=== PATIENT | female | born 1945 | race Caucasian/White ===

== ENCOUNTER 2016-12-22 09:30 | Emergency (ER) | payer OTHER ==
[2016-12-22 09:38] VITALS: O2SAT 96
--- NOTE | 2016-12-22 10:04 | EDPHY ---
H & P Stated Complaint: fatigue, nuasea upon waking up. intermittant epigastric pain. Source: Patient, Family Exam Limitations: No limitations - Personal History Current Tetanus/Diphtheria Vaccine: Yes Current Tetanus Diphtheria and Acellular Pertussis (TDAP): Yes - Medical/Surgical History Hx Asthma: No Hx Chronic Respiratory Disease: No Hx Diabetes: No Hx Cardiac Disease: No Hx Renal Disease: No Hx Cirrhosis: No Hx Alcoholism: No Hx HIV/AIDS: No Hx Splenectomy or Spleen Trauma: No Other PMH: pmh;hashimotios. psh: 2 c-setions - Social History Smoking Status: Never smoked HPI/ROS: CHIEF COMPLAINT: Epigastric discomfort, right arm stiffness, nausea HISTORY OF PRESENT ILLNESS: Patient complains of sudden onset of epigastric discomfort, nausea and right arm stiffness this morning. Symptoms started abruptly at 7:30 a.m. and lasted approximately 20 minutes. She took 281 mg aspirin. She took no other new medications. Symptoms were [id number] at the time. No fever chills. No shortness of breath. No recent travel or surgery. No history of venous thrombolic event. No history of coronary artery disease. She denies any unilateral motor sensory changes today. Does have a history of Ammon's thyroiditis and takes [place] Thyroid and cytomel. She also has chronic peripheral edema that is reportedly baseline. She has no vomiting. No recent illness. No abdominal discomfort. No urinary complaints. No other associated complaints or modifying factors. REVIEW OF SYSTEMS: Ten systems reviewed and are negative unless otherwise noted in the HPI PAST MEDICAL HISTORY: Ammon's thyroiditis, chronic edema. Takes are more thyroid 135 mcg daily, Cytomel 5 mg daily, Lasix 20 mg p.r.n., Ritalin 10 mg p.r.n. Last cardiac stress test was nearly 15 years ago when she was a patient of Dr. Barakat SOCIAL HISTORY: Nonsmoker. Did smoke for 12 pack year history stopping 30 years ago. Lives in [place], [place] FAMILY HISTORY: Noncontributory EXAMINATION General Appearance: Alert, no distress Head: normocephalic, atraumatic Eyes: Pupils equal and round, no conjunctival pallor or injection ENT, Mouth: Mucous membranes moist. Uvula midline. Neck: Normal inspection, supple, non-tender. No meningismus or rigidity. Respiratory: Lungs are clear with mild rhonchi at the bases. No crackles. No diminishment. No retractions. No consolidation. Cardiovascular: Regular rate and rhythm. No murmur. Pulses intact distally symmetrically Gastrointestinal: Abdomen is soft and nontender Back: non-tender, no bony abnormalities Neurological: GCS 15. Cranial nerves 2-12 grossly intact. A&O, nonfocal, normal gait. Strength is symmetric in all 4 limbs. No pronator drift. No dysmetria Skin: Warm and dry, no rash. No petechiae or purpura. No ecchymosis. Extremities: Nontender, no pedal edema Psychiatric: Mood and affect normal DIFFERENTIAL DIAGNOSES: Including but not limited to ACS, CAD, CHF, hypervolemia, gastritis, pancreatitis, cholecystitis MDM: 9:55 a.m. Epigastric discomfort with right arm tightness and nausea at 7:30 a.m. this morning the lasted 20 minutes. Completely asymptomatic at this time. Vital signs are within normal limits. Examination is unremarkable for any acute findings other than edema which she reports is chronic. Cardiac workup as been commenced. She is resting comfortably in no acute distress. 10:30 a.m. EKG is unremarkable for any signs of acute ischemia. Vital signs remained stable. CBC is unremarkable. Troponin is pending. Chest x-ray as read by me reveals no significant pleural effusion or pulmonary edema. 11:30 a.m. I have re-evaluated the patient. She is resting comfortably in no acute distress. No complaints of any pain at this time. Laboratory studies are negative including troponin. TSH is low. We discussed that her armor thyroid dose may be too high and that she should discuss with her physician. I discussed the case with Dr. Rojas. He recommends that we contact [facility] to set up the patient with outpatient stress test this week. The patient is amenable to this. 12:00 p.m. I discussed the case with [facility] (Myra). She will help arrange an outpatient stress test. She will have the office contact the patient. The patient is also contact their office should she not hear from them. The patient is comfortable this plan. She remains awake and alert in no acute distress. Vital signs remained stable. She has no chest pain or epigastric pain. She is comfortable with this plan and discharged home stable condition. She is to return to the emergency department immediately for any chest pain, return of the epigastric pain or any other symptoms. Additionally, she should contact her primary care physician to discuss the TSH level for medication reconciliation. EKG Interpretation: Dr. Rojas SUPERVISION: Patient was evaluated in conjunction with the supervising physician. Please see their note for details. (Sheldon Molina) Constitutional: Initial Vital Signs Temperature (C) 36.4 C 12/22/16 09:35 Heart Rate 78 12/22/16 09:35 Respiratory Rate 16 12/22/16 09:35 Blood Pressure 177/99 H 12/22/16 09:35 O2 Sat (%) 96 12/22/16 09:35 O2 Delivery Mode Room Air Allergies/Adverse Reactions: Penicillins Allergy (Verified 12/22/16 09:39) Home Medications: Medication Instructions Recorded Lasix 12/22/16 Medical Decision Making - Diagnostics EKG Interpretation: 12-lead EKG interpreted by me; official reading is in trace master. My interpretation is sinus rhythm rate 77 no ischemic changes. (Keon Rojas) Imaging Results: Imaging Impressions Chest X-Ray 12/22/16 09:54 Impression: No acute pulmonary disease. Other Provider: Case discussed with Jesse, not personally evaluated by me. Low suspicion history for ACS, normal lipase and troponin, EKG without acute changes. HEART score low risk. Plan for outpatient stress testing as charted. Symptoms resolved makes dissection, abdominal surgical process, stroke or other neurologic or neurosurgical emergency, less likely. I am the secondary supervising physician. (Keon Rojas) - Data Points Laboratory Results: Laboratory Results 12/22/16 10:15 12/22/16 10:15 12/22/16 12/22/16 12/22/16 10:15 10:15 10:15 WBC 5.58 10^3/uL 10^3/uL (3.80-9.50) RBC 4.99 10^6/uL 10^6/uL (4.18-5.33) Hgb 14.0 g/dL g/dL (12.6-16.3) Hct 42.0 % % (38.0-47.0) MCV 84.2 fL fL (81.5-99.8) MCH 28.1 pg pg (27.9-34.1) MCHC 33.3 g/dL g/dL (32.4-36.7) RDW 14.7 % % (11.5-15.2) Plt Count 222 10^3/uL 10^3/uL (150-400) MPV 12.2 fL H fL (8.7-11.7) Neut % (Auto) 57.7 % % (39.3-74.2) Lymph % (Auto) 29.0 % % (15.0-45.0) Tyrrell % (Auto) 9.9 % % (4.5-13.0) Eos % (Auto) 2.0 % % (0.6-7.6) Baso % (Auto) 0.9 % % (0.3-1.7) Nucleat RBC Rel Count 0.0 % % (0.0-0.2) Absolute Neuts (auto) 3.22 10^3/uL 10^3/uL (1.70-6.50) Absolute Lymphs (auto) 1.62 10^3/uL 10^3/uL (1.00-3.00) Absolute Monos (auto) 0.55 10^3/uL 10^3/uL (0.30-0.80) Absolute Eos (auto) 0.11 10^3/uL 10^3/uL (0.03-0.40) Absolute Basos (auto) 0.05 10^3/uL 10^3/uL (0.02-0.10) Absolute Nucleated RBC 0.00 10^3/uL 10^3/uL (0-0.01) Immature Gran % 0.5 % % (0.0-1.1) Immature Gran # 0.03 10^3/uL 10^3/uL (0.00-0.10) PT 12.3 SEC SEC (12.0-15.0) INR 0.92 (0.83-1.16) APTT 24.2 SEC SEC (23.0-38.0) Sodium 144 mEq/L mEq/L (134-144) Potassium 3.9 mEq/L mEq/L (3.5-5.2) Chloride 108 mEq/L mEq/L (97-110) Carbon Dioxide 25 mEq/l mEq/l (22-31) Anion Gap 11 mEq/L mEq/L (8-16) BUN 17 mg/dL mg/dL (7-23) Creatinine 0.7 mg/dL mg/dL (0.6-1.0) Estimated GFR > 60 Glucose 91 mg/dL mg/dL (70-100) Calcium 9.8 mg/dL mg/dL (8.5-10.4) Total Bilirubin 0.5 mg/dL mg/dL (0.1-1.4) Conjugated Bilirubin 0.3 mg/dL mg/dL (0.0-0.5) Unconjugated Bilirubin 0.2 mg/dL mg/dL (0.0-1.1) AST 23 IU/L IU/L (14-46) ALT 32 IU/L IU/L (9-52) Alkaline Phosphatase 86 IU/L IU/L (38-126) Troponin I < 0.012 ng/mL ng/mL (0-0.034) NT-Pro-B Natriuret Pep 138 pg/mL H pg/mL (0-125) Total Protein 7.8 g/dL g/dL (6.3-8.2) Albumin 4.6 g/dL g/dL (3.5-5.0) Lipase 88.0 IU/L IU/L (23-300) TSH < 0.015 uIU/mL L uIU/mL (0.465-4.680) Departure - Departure Disposition: Home, Routine, Self-Care Clinical Impression: Epigastric pain, Ammon's thyroiditis Condition: Good Instructions: Epigastric Pain (ED) Additional Instructions: 1. Veronica Wolfe will contact you today to schedule a stress test this week 2. Contact her primary care physician to discuss her TSH in armor thyroid dosing 3. Return to ER for any return of symptoms, any chest pain, shortness of breath Referrals: NONE *PRIMARY CARE P,. [Primary Care Provider] - As per Instructions [facility] [Provider Group] - As per Instructions Segun Vaz MD [Medical Doctor] - As per Instructions
--- NOTE | 2016-12-22 10:06 | CPEKG ---
Heart Rate: 77 RR Interval: 779 P-R Interval: 135 QRSD Interval: 90 QT Interval: 380 QTC Interval: 431 P [place]: 43 QRS [place]: 61 T Wave [place]: 9 EKG Severity - NORMAL ECG - EKG Impression: SINUS RHYTHM Electronically Signed By: Keon Rojas 22-Dec-2016 10:29:28
[2016-12-22 10:32] LABS: % IMMATURE GRANULYOCYTES 0.5 % (0.0-1.1); ABSOLUTE IMMATURE GRANULOCYTES 0.03 10^3/uL (0.00-0.10); ADD DIFF? NO; ADD MORPH? NO; ADD SCAN? NO; ATYPICAL LYMPHOCYTE FLAG 30 (0-99); FRAGMENT RBC FLAG 20 (0-99); LEFT SHIFT FLG 0 (0-99); LIPEMIA HEMOLYSIS FLAG 80 (0-99); MEAN CELL HEMOGLOBIN 28.1 pg (27.9-34.1); MEAN CELL HEMOGLOBIN CONCENTR. 33.3 g/dL (32.4-36.7); MEAN CELL VOLUME 84.2 fL (81.5-99.8); MEAN PLATELET VOLUME 12.2 fL (8.7-11.7); PLATELET CLUMPS FLAG 10 (0-99); PLATELET COUNT 222 10^3/uL (150-400); RED BLOOD CELL COUNT 4.99 10^6/uL (4.18-5.33); RED CELL DISTRIBUTION WIDTH 14.7 % (11.5-15.2)
[2016-12-22 10:38] LABS: INR 0.92 (0.83-1.16); PROTIME(PATIENT) 12.3 SEC (12.0-15.0)
[2016-12-22 10:39] LABS: APTT 24.2 SEC (23.0-38.0)
[2016-12-22 10:40] LABS: ALANINE AMINOTRANSFERASE 32 IU/L (9-52); ALBUMIN 4.6 g/dL (3.5-5.0); ALKALINE PHOSPHATASE 86 IU/L (38-126); ANION GAP 11 mEq/L (8-16); ASPARTATE AMINOTRANSFERASE 23 IU/L (14-46); BILIRUBIN,TOTAL 0.5 mg/dL (0.1-1.4); BILIRUBIN-CONJUGATED 0.3 mg/dL (0.0-0.5); BILIRUBIN-UNCONJUGATED 0.2 mg/dL (0.0-1.1); CALCIUM 9.8 mg/dL (8.5-10.4); CARBON DIOXIDE 25 mEq/l (22-31); CHLORIDE 108 mEq/L (97-110); CREATININE 0.7 mg/dL (0.6-1.0); GLOMERULAR FILTRATION RATE > 60; GLUCOSE 91 mg/dL (70-100); POTASSIUM 3.9 mEq/L (3.5-5.2); SODIUM 144 mEq/L (134-144); TOTAL PROTEIN 7.8 g/dL (6.3-8.2)
[2016-12-22 10:52] LABS: TROPONIN I < 0.012 ng/mL (0-0.034)
[2016-12-22 11:53] VITALS: BP 170/91; PULSE 68; RESP 18; TEMP 98.4
== END 2016-12-22 11:52 | disposition home or self-care (01) ==
DX: R10.13 Epigastric pain (principal); E06.3 Autoimmune thyroiditis

== ENCOUNTER → 2017-01-21 | Outpatient (CLI) | payer OTHER | LOC: BHFA 11:00 | PROVIDERS: ATTEND Internal Medicine Cardiovascular Disease | DX: R07.9 Chest pain, unspecified (principal) ==